=== PATIENT | male | born 1990 | race African-American/Black ===

== ENCOUNTER 2017-07-06 22:38 | Emergency (ER) | payer OTHER ==
[~2017-07-06] VITALS: Ht 177.8 cm; Wt 70.2 kg
[2017-07-06] MEDS ORDERED: CLARITIN,ALAVAR10 MG PO (22:43)
[2017-07-06] MEDS ORDERED: ZYRTEC10 M2 PO (22:43)
[2017-07-07] MEDS ORDERED: DUONEB 2.5-0.5 M3 ML AEROSOL (00:24)
[2017-07-07] MEDS ORDERED: PROVENTIL HFA6.7 GM IH (00:24)
[2017-07-07] MEDS ORDERED: PREDNISONE20 MG PO (00:24)
[2017-07-07 00:37] VITALS: BP 119/73
== END 2017-07-07 00:46 ==
LOC: EME 22:38 → EDBD 22:38 → EME 22:38
DX: J45.909 Unspecified asthma, uncomplicated (principal); R06.02 Shortness of breath
CPT/HCPCS: 71046; 94644; 99281; 99283